=== PATIENT | female | born 1985 | race Caucasian/White ===

== ENCOUNTER 2016-08-17 00:44 | Emergency (ER) | payer OTHER ==
[2016-08-17 01:05] VITALS: BP 124/92; PULSE 99; TEMP 97.7; BMI 19.5
[2016-08-17] MEDS ORDERED: TOBRAMYCIN 0.3% OPHTH SOLN 5 ML BOTTLE ONE (01:22)
[2016-08-17] MEDS ORDERED: TOBRAMYCIN 0.3% OPHTH SOLN 5 ML BOTTLE OU ONE (01:22)
--- NOTE | 2016-08-17 01:34 | PDOC ---
Post Exposure HPI <David Larsen - Last Filed: 08/17/16 01:36> - General History Source: Patient Exam Limitations: No Limitations - History of Present Illness Initial Comments: 08/17/16 01:37 The patient is a 30-year-old female, with no significant past medical history, who presents to the emergency department for further evaluation of body fluid exposure tonight. The patient is a nurse at [employer]. She reports that she was handling a gastrostomy tube of one of her patients, and some of the fluid from the tube splashed up into her eyes. She reports that she immediately flushed her eyes and the facial area out. The patient states that her patient has some highly resistant bacteria. The patient states she is completely vaccinated, and her tetanus vaccination is up to date. The patient denies chest pain, shortness of breath, headache and dizziness. The patient denies fever, chills, nausea, vomit, diarrhea and constipation. The patient denies dysuria, frequency, urgency and hematuria. Allergies: NKDA Past surgical history: None reported Social history: No toxic habits <Kristi Arango - Last Filed: 08/17/16 01:38> - General Chief Complaint: Blood/Body Fluid Exposure [facility] Stated Complaint: EYE PROBLEM - EMPLOYEE Past History - Reproductive History LMP: 08/22/11 - Immunization History Immunizations Up to Date: No - Social History Smoking History: Yes Smoking Status: Never smoked Number of Ciarettes Per Day: 0 Alcohol Use: occasionally Drug Use: none <David Larsen - Last Filed: 08/17/16 01:36> <Kristi Arango - Last Filed: 08/17/16 01:38> - Past Medical History Allergies/Adverse Reactions: Allergies No Known Allergies Allergy (Verified 08/17/16 01:05) Home Medications: Ambulatory Orders Sulfamethoxazole/Trimethoprim [Bactrim *Ds*] 1 each NR BID #14 tablet 09/22/11 Review of Systems - Review of Systems Able to Perform ROS?: Yes Comments:: 08/17/16 01:37 CONSTITUTIONAL: Absent: fever, no chills, no fatigue EYES: Present: (+) eye exposure to body fluids Absent: visual changes ENT: Absent: ear pain, no sore throat CARDIOVASCULAR: Absent: chest pain, no palpitations RESPIRATORY: Absent: cough, no SOB GI: Absent: abdominal pain, no nausea, no vomiting, no constipation, no diarrhea GENITOURINARY: Absent: dysuria, no frequency, no hematuria MUSKULOSKELETAL: Absent: back pain, no arthralgia, no myalgia SKIN: Absent: rash NEURO: Absent: headache <Kristi Arango - Last Filed: 08/17/16 01:38> *Physical Exam - Vital Signs Last Vital Signs Temp Pulse Resp BP Pulse Ox 97.7 F 99 H 19 124/92 98 08/17/16 01:02 08/17/16 01:02 08/17/16 01:02 08/17/16 01:02 08/17/16 01:02 <David Larsen - Last Filed: 08/17/16 01:36> - Vital Signs Last Vital Signs Temp Pulse Resp BP Pulse Ox 97.7 F 99 H 19 124/92 98 08/17/16 01:02 08/17/16 01:02 08/17/16 01:02 08/17/16 01:02 08/17/16 01:02 - Physical Exam Comments: 08/17/16 01:37 GENERAL: Well-appearing, well-nourished. No apparent distress. HEENT: (+) Eye exam unremarkable. Normocephalic, atraumatic. PERRL, EOM intact. CARDIOVASCULAR: Normal S1, S2. Regular rate and rhythm. PULMONARY: Clear to auscultation bilaterally. ABDOMEN: Soft, non-distended, non-tender. EXTREMITIES: Normal ROM in all four extremities. No gross deformities. SKIN: Warm, dry. No rash NEUROLOGICAL: No focal neurological deficits. <Kristi Arango - Last Filed: 08/17/16 01:38> Medical Decision Making - Medical Decision Making 08/17/16 01:36 patient declines PEP at this time. <David Larsen - Last Filed: 08/17/16 01:36> *DC/Admit/Observation/Transfer - Discharge Dispostion Admit: No <David Larsen - Last Filed: 08/17/16 01:36> - Attestations Scribe Attestion: 08/17/16 01:38 Documentation prepared by Kristi Arango, acting as medical apparatus model maker for David Larsen MD. <Kristi Arango - Last Filed: 08/17/16 01:38> Diagnosis at time of Disposition: Patient exposure to body fluids - Discharge Dispostion Disposition: HOME Condition at time of disposition: Good - Referrals - Patient Instructions Printed Discharge Instructions: How to Handle Body Fluid Exposure -- Healthcare Worker Additional Instructions: use the tobramycin drops prophylactically - Post Discharge Activity Work/School Note: Back to Work
== END 2016-08-17 01:52 | disposition home or self-care (01) ==
LOC: JER 00:44
DX: Z77.21 Contact with and (suspected) exposure to potentially hazardous body fluids (principal); X58.XXXA Exposure to other specified factors, initial encounter; Y93.F9 Activity, other caregiving; Y92.230 Patient room in hospital as the place of occurrence of the external cause; Y99.0 Civilian activity done for income or pay
CPT/HCPCS: 99281-25